=== PATIENT | male | born 1975 | race African-American/Black ===

== ENCOUNTER 2020-06-27 23:15 | Emergency (ER) | payer OTHER ==
[~2020-06-27] VITALS: Ht 182.9 cm; Wt 78.0 kg
[~2020-06-27 23:15] MED LIST: NORCO 5-325 TA1 EACH PO; NORFLEX100 MG PO; ZANTAC 150MG T150 MG
[2020-06-28] MEDS ORDERED: KEFLEX500 M1 PO (02:29)
[2020-06-28 02:44] VITALS: BP 132/84
== END 2020-06-28 02:40 | disposition home or self-care (01) ==
LOC: ER 23:15
DX: S01.81XA Laceration without foreign body of other part of head, initial encounter (principal); Y04.2XXA Assault by strike against or bumped into by another person, initial encounter; Y93.89 Activity, other specified; Y92.89 Other specified places as the place of occurrence of the external cause; Y99.8 Other external cause status

== ENCOUNTER 2020-07-05 16:43 | Emergency (ER) | payer OTHER ==
[~2020-07-05] VITALS: Ht 182.9 cm; Wt 76.2 kg
[~2020-07-05 16:43] MED LIST changes: +KEFLEX500 M1 PO
[2020-07-05 18:00] VITALS: BP 132/87
== END 2020-07-05 18:01 | disposition home or self-care (01) ==
LOC: ER 16:43
DX: S01.81XD Laceration without foreign body of other part of head, subsequent encounter (principal); Z79.2 Long term (current) use of antibiotics; Y08.89XD Assault by other specified means, subsequent encounter